=== PATIENT | female | born 1995 | race Caucasian/White ===

== ENCOUNTER → 2017-06-04 | Outpatient (CLI) | payer OTHER, SELFPAY ==
--- NOTE | 2017-06-04 15:39 | DIREP ---
PROCEDURE:MRI JOINT LOWER EXTREMITY-RT W/O COMPARISON:[facility], CR, XRAY ANKLE COMPLETE-RT, 11/19/2016, 11:07 PM. INDICATIONS:S93.491D SPRAIN OF RIGHT ANKLE, M25.571 PAIN IN RIGHT ANKLE AND JOINTS OF R TECHNIQUE:A complete multi-planar examination was performed without contrast. FINDINGS: LATERAL LIGAMENTS AND SOFT TISSUE STRUCTURES TALOFIBULAR:Normal. CALCANEOFIBULAR:Normal. TIBIOFIBULAR:Normal. PERONEAL TENDONS:Normal. No subluxation, tendinopathy, or tear. MEDIAL LIGAMENTS AND SOFT TISSUE STRUCTURES DELTOID COMPLEX:Normal. SPRING LIGAMENT:Normal. TARSAL TUNNEL:Normal. FLEXORS:Normal. OTHER TENDONS EXTENSORS:Normal. ACHILLES:Normal. No surrounding abnormality. PLANTAR FASCIA:Normal. No tear or surrounding soft tissue edema to suggest fasciitis. SINUS TARSI:Mild stranding in the sinus tarsus. There is 8 mm cyst at the entrance to sinus tarsus the. BONES:Normal. No arthropathy, bone edema, osteochondral defect, or other bone lesion. EFFUSIONS:Small ankle joint effusion. OTHER:Nonspecific subcutaneous edema around the ankle. CONCLUSION: 1. Ankle ligaments are intact. 2. Mild edema within the sinus tarsus each with a cyst at the entrance. Correlate with clinical symptoms. Dictated by: Ricardo Mcrae M.D. on 06/04/2017 at 03:33 PM
== END | disposition home or self-care (01) ==
LOC: MRI 13:02
PROVIDERS: ATTEND Emergency Medicine
DX: S93.491D Sprain of other ligament of right ankle, subsequent encounter (principal); X58.XXXD Exposure to other specified factors, subsequent encounter
CPT/HCPCS: 73721